=== PATIENT | male | born 1980 | race Two or more races ===

== ENCOUNTER 2021-05-20 13:31 | Outpatient (CLI) | payer OTHER, SELFPAY | END 2021-05-20 13:32 | disposition home or self-care (01) | PROVIDERS: PCP Nurse Practitioner Family; Visit Provider Nurse Practitioner Family | DX: H93.13 Tinnitus, bilateral (principal); H90.42 Sensorineural hearing loss, unilateral, left ear, with unrestricted hearing on the contralateral side | CPT/HCPCS: 92557; 92567 ==

== ENCOUNTER 2021-09-18 07:59 | Outpatient (CLI) | payer OTHER, SELFPAY | END 2021-09-18 08:00 | disposition home or self-care (01) | LOC: ANHAUDIO 08:01 | PROVIDERS: PCP Nurse Practitioner Family; Visit Provider Nurse Practitioner Family | DX: H93.13 Tinnitus, bilateral (principal) | CPT/HCPCS: 92537; 92540 ==